=== PATIENT | male | born 1945 | race Caucasian/White ===

== ENCOUNTER 2018-03-05 15:25 | Emergency (ER) | payer SELFPAY ==
[2018-03-05] MEDS ORDERED: Adacel (T-DAP) 0.5 ML VIAL ONE (15:44)
[2018-03-05] MEDS ORDERED: Bacitracin Zinc 1 Packet ONE (16:04)
== END 2018-03-05 16:08 | disposition home or self-care (01) ==
LOC: SCSER 15:25
DX: S51.812A Laceration without foreign body of left forearm, initial encounter (principal); Z23 Encounter for immunization; W31.89XA Contact with other specified machinery, initial encounter
CPT/HCPCS: 12001; 90471; 90715

== ENCOUNTER 2021-10-31 16:09 | Emergency (ER) | payer SELFPAY ==
[~2021-10-31 16:09] MED LIST: Iopamidol 370 76% 50 ML VIAL FS ONE
[2021-10-31 17:04] LABS: #Lymphocytes 0.8 thou/uL (1.20-3.40); #Monocytes 0.3 thou/uL (0.11-0.59); #Neutrophils 1.4 thou/uL (1.40-6.50); %Basophils 0.5 % (0.0-1.0); %Eosinophils 0.9 % (0.0-10.0); %Lymphocytes 32.3 % (21.0-51.0); %Monocytes 12.1 % (0.0-10.0); %Neutrophils 54.3 % (42.0-75.0); Hemoglobin 9.4 g/dL (14.0-18.0); Mean Corpuscular HGB CONC 34.3 g/dL (32.0-36.0); Mean Corpuscular Hemoglobin 39.4 pg (27.0-31.0); Mean Platelet Volume 6.1 fL (7.4-10.4); Platelet Count 152 thou/uL (130-400); RBC Distribution Width 15.4 % (11.5-14.5); Red Blood Cell (RBC) Count 2.39 mill/uL (4.70-6.10); White Blood Cell (WBC) Count 2.6 thou/uL (4.8-10.8)
[2021-10-31 17:29] LABS: ALT (SGPT) 72 U/L (8-55); AST (SGOT) 67 U/L (5-34); Albumin 2.7 g/dL (3.4-4.8); Alkaline Phosphatase 95 U/L (40-110); Anion Gap 12 mmol/L (10-20); BUN (Urea Nitrogen) 23 mg/dL (8.4-25.7); Bilirubin, Total 1.6 mg/dL (0.2-1.2); Calc. Creatinine Clearance 0 mL/min (70-130); Calcium 9.3 mg/dL (7.8-10.44); Carbon Dioxide 20 mmol/L (23-31); Chloride 103 mmol/L (98-107); Glucose 96 mg/dL (83-110); Lipase 16 U/L (8-78); Potassium 4.1 mmol/L (3.5-5.1); Sodium 131 mmol/L (136-145)
[2021-10-31 17:31] LABS: Anisocytosis SLIGHT = 6-15 cells (100X) (0-5/hpf); MDiff Complete? YES; Macrocytosis SLIGHT = 6-15 cells (100X) (0-5/hpf); Platelet Morphology Comment Appears Adequate; Polychromasia SLIGHT = 2-3 cells (100X) (0-2/hpf)
[2021-10-31 18:01] LABS: Globulin 10.6 g/dL (2.4-3.5); Protein, Total 13.3 g/dL (5.8-8.1)
[2021-10-31 20:41] LABS: Bilirubin Negative (Negative); Blood, Urine Negative (Negative); Clarity Clear (Clear); Glucose, Urine (Dipstick) Negative (Negative); Ketone, Urine Negative (Negative); Leukocyte Negative (Negative); Nitrite Negative (Negative); Protein, Urine (Dipstick) Negative (Neg-Trace)
== END 2021-10-31 21:13 | disposition home or self-care (01) ==
LOC: ERS 16:09
DX: R53.1 Weakness (principal); C90.00 Multiple myeloma not having achieved remission; D64.9 Anemia, unspecified; Z79.52 Long term (current) use of systemic steroids; Z79.899 Other long term (current) drug therapy
CPT/HCPCS: 36415; 71045; 71260; 74177; 80053; 81003; 83690; 84484; 85025; 93005; Q9967

== ENCOUNTER 2021-11-11 10:03 | Outpatient (CLI) | payer OTHER ==
[2021-11-11 17:42] LABS: SARS-CoV-2 PCR by NAA Not Detected (NotDetected)
== END 2021-11-11 10:04 | disposition home or self-care (01) ==
LOC: LABBT 10:03
PROVIDERS: ATTEND Internal Medicine Medical Oncology
DX: Z01.812 Encounter for preprocedural laboratory examination (principal); C90.00 Multiple myeloma not having achieved remission; D47.2 Monoclonal gammopathy; Z20.822 Contact with and (suspected) exposure to COVID-19
CPT/HCPCS: U0003; U0005

== ENCOUNTER → 2021-11-16 | Day surgery (SDC) | payer OTHER ==
[2021-11-11 13:35] VITALS: BMI 29.7
[~2021-11-16] MED LIST changes: +FLU VACC QS2021-22(65YR UP)/PF 240 MCG/0.7 ML SYRINGE IM ONE; +Fentanyl 100 MCG/2 ML VIAL ONE; -Iopamidol 370 76% 50 ML VIAL FS ONE; +Sodium Bicarbonate 2.5 MEQ/5 ML VIAL ONE
[2021-11-16 10:07] LABS: INR-International Normal Ratio 1.3; Prothrombin Time 16.4 sec (12.0-14.7)
[2021-11-16 10:08] LABS: PTT 46.4 sec (22.9-36.1)
[2021-11-16 10:25] VITALS: BP 139/69; TEMP 98.1
== END ==
LOC: CT 09:13
PROVIDERS: ATTEND Internal Medicine Medical Oncology
PROC: 07DR3ZX Extraction of Iliac Bone Marrow, Percutaneous Approach, Diagnostic (ICD-10-PCS; principal; 2021-11-16)
PROC: 079T3ZX Drainage of Bone Marrow, Percutaneous Approach, Diagnostic (ICD-10-PCS; principal; 2021-11-16)
DX: C90.00 Multiple myeloma not having achieved remission (principal); G89.29 Other chronic pain; M54.9 Dorsalgia, unspecified; N40.0 Benign prostatic hyperplasia without lower urinary tract symptoms; Z79.899 Other long term (current) drug therapy
CPT/HCPCS: 20225; 77002; 85097; 85610; 85730; 88305; 88311; 88313; 90471; 90662; 90732; G0008; G0009; J3010

== ENCOUNTER 2022-02-15 13:27 | Outpatient (CLI) | payer OTHER, SELFPAY | END 2022-02-15 13:28 | disposition home or self-care (01) | LOC: ULT 13:27 | PROVIDERS: ATTEND Internal Medicine Medical Oncology | DX: Z51.11 Encounter for antineoplastic chemotherapy (principal); C90.00 Multiple myeloma not having achieved remission; C79.51 Secondary malignant neoplasm of bone; I08.1 Rheumatic disorders of both mitral and tricuspid valves; Z79.899 Other long term (current) drug therapy | CPT/HCPCS: 93306 ==

== ENCOUNTER 2024-07-26 10:34 | Outpatient (CLI) | payer MEDICARE, OTHER | END 2024-07-26 10:35 | disposition home or self-care (01) | LOC: ULT 10:34 | PROVIDERS: ATTEND Physician Assistant Medical | DX: K74.60 Unspecified cirrhosis of liver (principal); K80.20 Calculus of gallbladder without cholecystitis without obstruction | CPT/HCPCS: 76705 ==

== ENCOUNTER 2024-08-21 13:16 | Outpatient (CLI) | payer MEDICARE, OTHER | END 2024-08-21 13:17 | disposition home or self-care (01) | LOC: BICMAMMO 13:16 | PROVIDERS: ATTEND Internal Medicine | DX: M85.851 Other specified disorders of bone density and structure, right thigh (principal); C90.00 Multiple myeloma not having achieved remission | CPT/HCPCS: 77080 ==